=== PATIENT | male | born 1980 | race African-American/Black ===

== ENCOUNTER 2020-05-03 14:16 | Emergency (ER) | payer OTHER, SELFPAY ==
[2020-05-03] VITALS (14 sets, daily range): BP systolic 121–148; BP diastolic 74–84; PULSE 74–98; RESP 14–28; TEMP 36.9; O2SAT 96–99
--- NOTE | ~2020-05-03 | XR_ITS ---
EXAMINATION: XR chest 2V DATE: 05/03/2020 15:03 INDICATION: Weakness. Body aches. TECHNIQUE: Frontal and lateral views of the chest were obtained. COMPARISON: Chest CT 04/09/2018 FINDINGS: There is no pneumonia, pleural effusion, or pneumothorax. The heart size is normal. There i s an anterior mediastinal mass of the left. IMPRESSION: 1. Stable anterior mediastinal mass. The differential diagnosis includes germ cell neoplasm, thymic n eoplasm, and pericardial or thymic cyst complicated by old infection or hematoma. Consider chest MRI without and with contrast. Reviewed, dictated and finalized at location A. IMPRESSION: 1. Stable anterior mediastinal mass. The differential diagnosis includes germ c ell neoplasm, thymic neoplasm, and pericardial or thymic cyst complicated by ol d infection or hematoma. Consider chest MRI without and with contrast.
--- NOTE | 2020-05-03 14:28 | ECG_ITS ---
Measurements Intervals [place] Rate: 92 P: 46 NC: 132 QRS: -11 QRSD: 101 T: 61 QT: 351 QTc: 435 Interpretive Statements SINUS RHYTHM LEFT VENTRICULAR HYPERTROPHY AND ST-T CHANGE DELAYED PRECORDIAL R/S TRANSITION NONSPECIFIC ST ELEVATION IN ANTERIOR LEADS BORDERLINE ECG Electronically Signed On 05-03-2020 15:07:23 CDT by Galen Tovar D.O.
[2020-05-03 14:51] LABS: Basophils Percent Auto 0.2 % (0.2-1.2); Hematocrit 39.3 % (42.0-52.0); Hemoglobin 13.2 g/dL (14.0-18.0); Immature Granulocyte Absolute 0.03 K/mm3 (0.00-0.031); Immature Granulocyte Percent A 0.3 % (0-0.5); Lymphocytes Absolute Auto 0.93 K/mm3 (0.9-3.2); Lymphocytes Percent Auto 9.4 % (18.3-44.2); Mean Corpuscular HGB Conc 33.6 g/dl (32-36); Mean Corpuscular Hemoglobin 31.7 pg (26-34); Mean Corpuscular Volume 94.5 fl (80-100); Mean Platelet Volume 9.7 fl (7.4-10.4); Monocytes Absolute Auto 0.4 K/mm3 (0.1-0.6); Neutrophils Absolute Auto 8.5 K/mm3 (1.3-6.7); Neutrophils Percent Auto 86.1 % (45.5-73.1); Platelet Count Result 301 k/mm3 (150-375); Red Blood Count 4.16 M/mm3 (4.6-6.20); Red Cell Distribution Width 14.1 % (11.5-14.5); White Blood Count 9.9 K/mm3 (4.5-10.0)
[2020-05-03 15:38] LABS: Alanine Aminotransferase 32 U/L (4-50); Albumin Level 4.3 g/dL (3.5-5.1); Alkaline Phosphatase 67 U/L (38-126); Aspartate Amino Transferase 36 U/L (17-59); Bilirubin,Total 0.3 mg/dL (0.2-1.3); Blood Urea Nitrogen 13 mg/dL (9-20); Calcium 9.2 mg/dL (8.4-10.2); Carbon Dioxide 30 mmol/L (22-30); Chloride 100 mmol/L (98-107); Estimated CRCL calculation 103 ml/min; Estimated Glomerular Filt Rate > 60; Glucose 134 mg/dL (75-110); Potassium 3.1 mmol/L (3.4-5.0); Sodium 138 mmol/L (137-145)
[2020-05-03 16:10] LABS: Add Urine Microscopic? YES; Appearance Urine Clear (Clear); Bacteria Urine Trace /hpf; Bilirubin Urine Negative (Negative); Blood Urine 2+ (Negative); Color Urine Yellow (Yellow); Glucose Urine UA Negative (Negative); Ketones Urine Negative (Negative); Leukocyte Esterase Ur Negative LEU/UL (Negative); Mucus Urine Rare /lpf; Nitrate Urine Negative (Negative); Protein Urine Negative (Negative); Specific Grav Ur 1.021 (1.001-1.035); Squamous Epithelial Cell Urine Occasional /hpf (Few); Urobilinogen Urine Negative mg/dL (<2.0); WBC Urine 0-3 /hpf
--- NOTE | 2020-05-03 16:41 | ED.WEAKNESS ---
HPI - Weakness General Chief complaint: Weakness Stated complaint: eye problem Time Seen by Provider: 05/03/20 16:00 Source: patient History of Present Illness HPI Narrative: Patient is 36 -[place] male complaining of general weakness and buzzing in the head for the last few months. Patient reports a lot of stress lately. Patient reports also intermittent generalized weakness. Patient does not have a job, also complaining of intermittent shortness of breath. Patient denies any fever, chills, nausea, vomiting, abdominal pain, chest pain or back pain. Patient denies any sore throat, nasal or postnasal discharge MD Complaint: generalized weakness Related Data Home Medications Medication Instructions Recorded Confirmed hydrochlorothiazide 05/03/20 05/03/20 metoprolol tartrate 05/03/20 misoprostol mcg 05/03/20 pravastatin 05/03/20 prednisone 05/03/20 rivaroxaban [Xarelto] mg 05/03/20 venlafaxine mg PO 05/03/20 Allergies Allergy/AdvReac Type Severity Reaction Status Date / Time sulfamethoxazole Allergy Intermediate Swelling Verified 05/03/20 14:20 trimethoprim Allergy Intermediate Swelling Verified 05/03/20 14:20 Review of Systems Review of Systems: Narrative: CONSTITUTIONAL: Denies fever, chills, or sweats. EYES: Denies visual changes, redness, or discharge. ENT: Denies rhinorrhea, congestion, sore throat, or otalgia. CARDIOVASCULAR: Denies chest pain, palpitations, or edema. RESPIRATORY: Denies cough or dyspnea. GASTROINTESTINAL: Denies abdominal pain, nausea, vomiting, or diarrhea. GENITOURINARY: Denies dysuria or hematuria. SKIN: Denies rash or itching. MUSCULOSKELETAL: Denies back pain, joint pain, or myalgia. NEUROLOGIC: Denies headache, numbness, or weakness. PSYCHIATRIC . PMFSH Social History Social History Gender identity (if verbalized by the patient): Male Exam Narrative: Exam Narrative: General appearance: Well-developed, well-nourished Skin: Normal color Head: Normocephalic, nontraumatic Eyes: Clear conjunctiva ENT: Oropharynx normal, ears normal, nose normal Neck: Supple, nontender Chest and respiratory: Airway patent, no respiratory distress, no accessory muscle use Heart: Regular rate/rhythm Abdomen: Soft, nontender, no organomegaly, quiet bowel sounds Vascular: Normal peripheral pulses, normal capillary refill. Musculoskeletal: Normal range of motion, nontender back Neurologic: Alert and oriented ?3, [employer] is normal as tested, no gross motor deficit Course Course Emergency Course: Stable Vital Signs Vital signs: Vital Signs Temperature 36.9 C 05/03/20 14:18 Pulse Rate 97 05/03/20 14:18 Respiratory Rate 16 05/03/20 14:18 Blood Pressure 148/79 H 05/03/20 14:18 Pulse Oximetry 99 05/03/20 14:18 Temperature 36.9 C 05/03/20 14:18 Pulse Rate 97 05/03/20 14:18 Respiratory Rate 16 05/03/20 14:18 Blood Pressure 148/79 H 05/03/20 14:18 Pulse Oximetry 99 05/03/20 14:18 MDM - Weakness MDM Narrative Medical decision making narrative: Stress is my concern. My plan to get some labs, chest x-ray, UA to make sure no underlying medical reason. Patient reported having a chest mass ,had extensive workups at [facility], showed benign mass . Scheduled for reevaluation on follow-up August 2020. Differential Diagnosis Differential diagnosis: Likely anemia, dehydration and other (Electrolyte imbalance) Lab Data Result diagrams: 05/03/20 14:44 05/03/20 14:44 Labs: Lab Results 05/03/20 05/03/20 05/03/20 Range/Units 14:44 14:44 16:00 WBC 9.9 (4.5-10.0) K/mm3 RBC 4.16 L
[2020-05-03] MEDS: POTASSIUM CHLORIDE 20 MEQ TABLET 40 MEQ PO (17:18)
== END 2020-05-03 17:26 | disposition home or self-care (01) ==
PROVIDERS: General Practice; Emergency Provider Emergency Medicine; PCP Family Medicine
DX: F32.9 Major depressive disorder, single episode, unspecified (principal); E87.6 Hypokalemia; R22.2 Localized swelling, mass and lump, trunk
CPT/HCPCS: 36415; 71046; 80053; 81001; 85025; 93005; 99283; A9270